=== PATIENT | male | born 1975 | race Caucasian/White ===

== ENCOUNTER 2019-11-11 12:58 | Emergency (ER) | payer OTHER, SELFPAY ==
[2019-11-11 13:11] VITALS: BP 167/112; PULSE 80; RESP 14; TEMP 36.7; O2SAT 98; BMI 30.7
--- NOTE | 2019-11-11 13:59 | CT_ITS ---
WS: [id number] CT head wo con* 95306 REASON FOR EXAM: syncope IV CONTRAST ADMINISTERED: None. TOTAL EXAM DLP: 885.[address] scans at [facility] use at least one of these dose optimization techniques: automat ed exposure control; mA and/or kV adjustment per patient size (includes targeted exams where dose is matched to clinical indication); or iterative reconstruction. FINDINGS: The cordova and white matter interfaces are normal. No evidence of hemorrhage, infarction, or mass effect. The ventricles are all normal size. No paraventricular lesions are seen. The eleonora and cerebellum and posterior fossa are normal. The calvarium was normal. No fractures are seen. The paranasal sinuses, orbits, and mastoid air cells are normal. CT/CT head wo con* 97211 IMPRESSION: Normal CT of the brain
--- NOTE | 2019-11-11 13:59 | XR_ITS ---
WS: [id number] XR chest 1V portable 40911 REASON FOR EXAM: syncope FINDINGS: Arteriosclerotic changes in the arch of the aorta are noted. Scattered interstitial changes both lung norman with mild chronic obstructive pulmonary disease. The heart is not enlarged. The hilum is and apices are normal.
--- NOTE | 2019-11-11 14:01 | ECG_ITS ---
Measurements Intervals [place] Rate: 67 P: 70 [place]: 154 QRS: 39 QRSD: 102 T: 55 QT: 409 QTc: 432 SINUS RHYTHM No previous ECG available for comparison Electronically Signed On 11-11-2019 19:38:27 CDT by Giorgio Boyce M.D. [email or web address]
[2019-11-11 15:19] LABS: Amphetamines Screen Urine Negative (Negative); Barbiturates Screen Urine Negative (Negative); Benzodiazepines Screen Urine Negative (Negative); Cocaine Screen Urine Negative (Negative); Opiate Screen Urine Negative (Negative); PCP Screen Urine Negative (Negative); THC Screen Urine Positive (Negative)
[2019-11-11 15:20] VITALS: BP 147/107; PULSE 75; RESP 16; O2SAT 97
--- NOTE | 2019-11-11 15:28 | XR_ITS ---
WS: [id number] XR chest 2V* 09596 REASON FOR EXAM: dizziness FINDINGS: The heart and mediastinal interfaces are normal. The lung norman are well aerated. No pneumonia, pleural effusion, pulmonary edema, no pneumothorax. The hilum and apices are normal. No osseous abnormalities. XR/XR chest 2V* 40564 IMPRESSION: No active chest for acute pathology
[2019-11-11 15:29] LABS: Add Urine Microscopic? YES; Bilirubin Urine Neg (NEGATIVE); Blood Urine 2+ (Negative); Glucose Urine UA Norm (Normal); Ketones Urine Negative (Negative); Leukocyte Esterase Urine Negative (Negative); Nitrate Urine Negative (Negative); Protein Urine Neg (Negative); Specific Gravity, Urine 1.015 (1.005-1.030); Urine Appearance Clear (CLEAR); Urine Color Yellow (Yellow); Urobilinogen Urine Norm (Negative); pH Urine 6 (5-7)
[2019-11-11 15:40] LABS: Add Urine Culture? No; Bacteria Urine TRACE; RBC Urine 0-4 /hpf (0-2)
[2019-11-11 15:49] LABS: Basophils # 0.1 10^3/uL (0.0-0.1); Basophils % 0.6 %; Eosinophils # 0.2 10^3/uL (0.0-0.8); Eosinophils % 1.9 %; Hematocrit 42.5 % (42.0-52.0); Hemoglobin 13.8 g/dL (11.7-16.6); Lymphocytes # 2.3 10^3/uL (0.8-4.8); Lymphocytes % 24.2 %; Mean Corpuscular HGB Conc 32.5 g/dL (30.0-36.0); Mean Corpuscular Hemoglobin 30.7 pg (28.0-34.0); Mean Corpuscular Volume 94.7 fL (80-94); Monocytes # 0.6 10^3/uL (0.2-0.9); Monocytes % 5.9 %; Neutrophils # 6.3 10^3/uL (1.8-7.7); Neutrophils % 66.9 %; Nucleated Red Blood Cells % 0 %; Platelet Count 284 10^3/cmm (130-400); Red Blood Count 4.49 10^6/uL (4.1-5.3); Red Cell Distribution Width 13.5 % (12.1-15.1); White Blood Count 9.4 10^3/uL (4.0-10.0)
--- NOTE | 2019-11-11 16:03 | ED_ITS ---
HPI - Syncope General: Chief Complaint: Syncope Stated Complaint: passing out Time Seen by Provider: 11/11/19 13:56 Source: patient Mode of arrival: ambulatory Limitations: no limitations History of Present Illness: HPI narrative: 44-year-old gentleman who presents to the emergency department with complains of syncopal episodes that have been going on since April, about 7 months. He denies chest pain or difficulty breathing. He has a prior history of lymphoma and has been in remission for several years. He has been trying to get into his primary care provider's office and finally got in today. His primary care was concerned and so sent him here for evaluation. MD complaint: loss of consciousness Onset (ago): month(s) Associated symptoms: Deny abdominal pain, chest pain, fever(s), headache(s) or nausea Review of Systems General: Reports: 10 or more systems reviewed and unremarkable except in HPI and below Const: Denies: fever(s), chills or body aches Eyes: Denies: change in vision or blurry vision ENMT: Denies: throat pain, enlarged tonsils, odynophagia, hoarseness, mouth pain or swelling of lips/tongue Card: Denies: chest pain, palpitations, irregular heart rhythm, edema or swelling of feet/ankles Resp: Denies: dyspnea, productive cough or non-productive cough GI: Denies: abdominal pain, nausea or vomiting : Denies: flank pain, dysuria, urinary frequency, urinary urgency or urinary hesitancy Musc: Denies: neck pain, back pain or extremity swelling Skin/Breast: Denies: rash, pruritus or erythema Neuro: Denies: headache(s), numbness in extremities or weakness in extremities Endo: Denies: polyuria, polydipsia or tired all the time PFS ED PFSH: Social History Smoking and tobacco status: never smoked Physical Exam Const: COMMON NORMALS: no acute distress, average body habitus, patient oriented x3, no limitations, healthy appearing, alert and well nourished HENMT: COMMON NORMALS: normocephalic, atraumatic and moist oral mucous membranes HEAD & SCALP: normocephalic and atraumatic Neck/C-Spine: COMMON NORMALS: full ROM, supple, no meningeal signs, no JVD and No carotid bruits Resp: COMMON NORMALS: normal respiratory effort, No retractions, No use of accessory muscles, clear to auscultation bilaterally and percussion normal AUSCULTATION: clear to auscultation bilaterally PERCUSSION: percussion normal Cardio: COMMON NORMALS: no JVD, regular rate, regular rhythm, S1 normal heart sound present, S2 normal heart sound present, No gallops present (Cardio), No clicks present (Cardio), No murmurs present (Cardio), No rub (Cardio) and Peripheral pulses 2+ throughout RATE: regular rate RHYTHM: regular rhythm HEART SOUNDS: S1 normal heart sound present and S2 normal heart sound present PERIPHERAL PULSES: Peripheral pulses 2+ throughout GI: COMMON NORMALS: Normal to inspection, nondistended, normoactive bowel sounds present, Soft to palpation, non-tender, No hepatosplenomegaly present, no masses and no bruits PALPATION: Yes Soft to palpation and Yes No hepa tosplenomegaly present : COMMON NORMALS: Yes no CVA tenderness BLADDER/KIDNEY EXAM: Yes no CVA tenderness Back/Pelvis: COMMON NORMALS: no CVA tenderness Extremity: COMMON NORMALS: normal to inspection, full ROM, capillary refill normal, no calf tenderness and no pedal edema Neuro: COMMON NORMALS: patient oriented x3 SENSORIUM/ORIENTATION: Yes alert MENINGEAL SIGNS: Yes no meningeal signs Skin: COMMON NORMALS: no rashes or lesions noted, no wounds, turgor normal, no jaundice, no petechiae and no mottling GENERAL SKIN EXAM: no rashes or lesions noted and turgor normal Course Reevaluation(s): Reevaluation #1: Patient informed the nurses that he would like to be discharged home. He states he does not want to stay in the hospital. I had a conversation with him, he informed me that all he came here for his to get his chest x-ray and lab work done. He states that his primary care provider will follow up with his lab results. He is not willing to wait for the lab results. 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 He therefore would like to leave. I explained to him that his symptoms may represent something serious and potentially life-threatening, he voiced understanding but still insisted on b eing discharged. He is willing to sign the AMA papers. Time: 16:03 Vital Signs: Vital signs: Vital Signs Temperature 98.0 F 11/11/19 13:11 Pulse Rate 75 11/11/19 15:20 Respiratory Rate 16 11/11/19 15:20 Blood Pressure 147/107 11/11/19 15:20 Pulse Oximetry 97 11/11/19 15:20 MDM - Syncope MDM Narrative: Medical decision making narrative: Patient who presents to the emergency department for evaluation of recurrent syncope. The patient was unwilling to wait for the results of his lab. He just wanted his labs to be drawn and his primary care provider will follow up with his results. The patient left AGAINST MEDICAL ADVICE. He understood the risks. Differential Diagnosis: Syncope differential diagnosis: Likely syncope due to orthostatic hypotension and vasovagal syncope Medical Records: Attestation: I reviewed the patient's medical records. Lab Data: Attestation: I reviewed the patient's lab results. Labs: Lab Results 11/11/19 11/11/19 11/11/19 Range/Units 14:10 14:54 14:54 WBC Cancelled Corrected WBC Cancelled RBC Cancelled Hgb Cancelled Hct Cancelled MCV Cancelled MCH Cancelled MCHC Cancelled RDW Cancelled Plt Count Cancelled MPV Cancelled Gran % Cancelled Neut % (Auto) Cancelled Lymph % (Auto) Cancelled [place] % (Auto) Cancelled Eos % (Auto) Cancelled Baso % (Auto) Cancelled Neut # (Auto) Cancelled Lymph # (Auto) Cancelled [place] # (Auto) Cancelled Eos # (Auto) Cancelled Baso # (Auto) Cancelled Absolute Gran (aut o) Cancelled Nucleated RBC % (a uto) Cancelled Nucleated RBCs # Cancelled Sodium (136-145) mmol/L Potassium (3.5-5.1) mmol/L Chloride (98-107) mmol/L Carbon Dioxide (22-29) mmol/L Anion Gap (5-19) BUN (6-20) mg/dL Creatinine (0.7-1.2) mg/dL GFR Calculation (90-130) mL/min Glucose (65-115) mg/dL Calculated Osmolal ity (285-295) mOsm/k g Lactate (0.5-2.2) mmol/L Calcium (8.5-10.5) mg/dL Total Bilirubin (0.15-1.2) mg/dL AST (0-40) U/L ALT (0-41) U/L Alkaline Phosphata se (40-130) IU/L C-Reactive Protein (0.0-4.9) mg/L Total Protein (6.6-8.7) g/dL Albumin (3.5-5.2) g/dL Globulin (1.3-4.6) g/dL Lipase (13-60) U/L Urine Color Yellow (Yellow) Urine Appearance Clear (CLEAR) Urine pH 6 (5-7) Ur Specific Gravit y 1.015 (1.005-1.030) Urine Protein Neg (Negative) Urine Glucose (UA) Norm (Normal) Urine Ketones Negative (Negative) Urine Blood 2+ H (Negative) Urine Nitrate Negative (Negative) Urine Bilirubin Neg (NEGATIVE) Urine Urobilinogen Norm (Negative) mg/dL Ur Leukocyte Hui ase Negative (Negative) Urine RBC 0-4 H (0-2) /hpf Urine WBC None (0-5) /hpf Ur Squamous Epith Cells None (0-5) Urine Bacteria Trace (NONE) Urine Opiates Scre en Negative (Negative) ng/mL Ur Barbiturates Sc reen Negative (Negative) ng/mL Ur Phencyclidine S crn Negative (Negative) ng/mL Ur Amphetamines Sc reen Negative (Negative) ng/mL U Benzodiazepines Scrn Negative (Negative) ng/mL Urine Cocaine Scre en Negative (Negative) ng/mL U Marijuana (THC) Screen Positive H (Negative) ng/mL 11/11/19 11/11/19 11/11/19 Range/Units 15:40 15:40 15:40 WBC 9.4 Corrected WBC RBC 4.49 Hgb 13.8 Hct 42.5 MCV 94.7 H MCH 30.7 MCHC 32.5 RDW 13.5 Plt Count 284 MPV 11.0 H Gran % Neut % (Auto) 66.9 Lymph % (Auto) 24.2 [place] % (Auto) 5.9 Eos % (Auto) 1.9 Baso % (Auto) 0.6 Neut # (Auto) 6.3 Lymph # (Auto) 2.3 [place] # (Auto) 0.6 Eos # (Auto) 0.2 Baso # (Auto) 0.1 Absolute Gran (aut o) Nucleated RBC % (a uto) 0 Nucleated RBCs # 0.0 Sodium 140 (136-145) mmol/L Potassium 4.4 (3.5-5.1) mmol/L Chloride 102 (98-107) mmol/L Carbon Dioxide 26 (22-29) mmol/L Anion Gap 16.4 (5-19) BUN 5 L (6-20) mg/dL Creatinine 0.8 (0.7-1.2) mg/dL GFR Calculation 104.1 (90-130) mL/min Glucose 99 (65-115) mg/dL Calculated Osmolal ity 286 (285-295) mOsm/k g Lactate 0.8 (0.5-2.2) mmol/L Calcium 10.0 (8.5-10.5) mg/dL Total Bilirubin 0.4 (0.15-1.2) mg/dL AST 15 (0-40) U/L ALT 17 (0-41) U/L Alkaline Phosphata se 83 (40-130) IU/L C-Reactive Protein 8.2 H (0.0-4.9) mg/L Total Protein 7.4 (6.6-8.7) g/dL Albumin 4.4 (3.5-5.2) g/dL Globulin 3.0 (1.3-4.6) g/dL Lipase 22 (13-60) U/L Urine Color (Yellow) Urine Appearance (CLEAR) Urine pH (5-7) Ur Specific Gravit y (1.005-1.030) Urine Protein (Negative) Urine Glucose (UA) (Normal) Urine Ketones (Negative) Urine Blood (Negative) Urine Nitrate (Negative) Urine Bilirubin (NEGATIVE) Urine Urobilinogen (Negative) mg/dL Ur Leukocyte Hui ase (Negative) Urine RBC (0-2) /hpf Urine WBC (0-5) /hpf Ur Squamous Epith Cells (0-5) Urine Bacteria (NONE) Urine Opiates Scre en (Negative) ng/mL Ur Barbiturates Sc reen (Negative) ng/mL Ur Phencyclidine S crn (Negative) ng/mL Ur Amphetamines Sc reen (Negative) ng/mL U Benzodiazepines Scrn (Negative) ng/mL Urine Cocaine Scre en (Negative) ng/mL U Marijuana (THC) Screen (Negative) ng/mL Imaging Data^: CXR: Radiologist's impression: [address] [address] XRay Report Signed Patient: Buddy Hoffman #: [id number] : 1975Acct#:[id number] Age/Sex: 44 / MADM Date: 11/11/19 Loc: ERRoom/Bed: Attending Dr: Ordering Provider/Ordering MD: Nerissa Cueva MD, [facility] [place] Date of Service: 11/11/19 Procedure(s): XR chest 2V* 19722 Accession Number(s): [id number] Report Number: [id number] WS: [id number] XR chest 2V* 99678 REASON FOR EXAM: dizziness FINDINGS: The heart and mediastinal interfaces are normal. The lung norman are well aerated. No pneumonia, pleural effusion, pulmonary edema, no pneumothorax. The hilum and apices are normal. No osseous abnormalities. XR/XR chest 2V* 64600 IMPRESSION: No active chest for acute pathology Dictated By:Franck Mosquera DO Signed By:Franck Mosquera DOSigned Date/Time:11/11/191558 DD/ 155 CT Head: Radiologist's impression: [address] [address] [address] Scan Report Signed Patient: Buddy Hoffman #: [id number] : 1975Acct#:[id number] Age/Sex: 44 / MADM Date: 11/11/19 Loc: ERRoom/Bed: Attending Dr: Ordering Provider/Ordering MD: Mirza Colunga DO Date of Service: 11/11/19 Procedure(s): CT head wo con* 22339 Accession Number(s): [id number] Report Number: [id number] WS: [id number] CT head wo con* 22966 REASON FOR EXAM: syncope IV CONTRAST ADMINISTERED: None. TOTAL EXAM DLP: 885.[address] scans at [facility] use at least one of these dose optimization techniques: automated exposure control; mA and/or kV adjustment per patient size (includes targeted exams where dose is matched to clinical indication); or iterative reconstruction. FINDINGS: The cordova and white matter interfaces are normal. No evidence of hemorrhage, infarction, or mass effect. The ventricles are all normal size. No paraventricular lesions are seen. The eleonora and cerebellum and posterior fossa are normal. The calvarium was normal. No fractures are seen. The paranasal sinuses, orbits, and mastoid air cells are normal. CT/CT head wo con* 85012 IMPRESSION: Normal CT of the brain Dictated By:Franck Mosquera DO Signed By:Franck Mosquera DOSigned Date/Time:11/11/19 1541 DD/ 1539 EKG Data^: EKG 1: Attestation: I personally reviewed and interpreted this EKG as follows: EKG interpretation date: 11/11/19 EKG interpretation time: 14:38 Prior EKG tracings: not available for review Interpretation: Normal sinus rhythm. Heart rate [address] changes. Normal axis. Discharge Plan Discharge Patient Disposition: Left Against Medical Advice Clinical Impression: History of lymphoma Syncope Qualifiers: Syncope type: unspecified Qualified Code(s): R55 - Syncope and collapse Condition: Stable Referrals: [facility] [Primary Care Provider] - 4-7 days Activity Restrictions/Additional Instructions: It is important for you to follow-up with your primary care provider for evaluation of your test results. Return for any new or worsening symptoms. Discharge Date/Time: 11/11/19 16:11 Coding Level of Care Code ED Weather Stripper for Mendoza Torres
[2019-11-11 16:04] LABS: Lactate (Lactic Acid level) 0.8 mmol/L (0.5-2.2)
[2019-11-11 16:05] LABS: Alanine Aminotransferase 17 U/L (0-41); Albumin Level 4.4 g/dL (3.5-5.2); Alkaline Phosphatase 83 IU/L (40-130); Aspartate Amino Transferase 15 U/L (0-40); Blood Urea Nitrogen 5 mg/dL (6-20); C Reactive Protein 8.2 mg/L (0.0-4.9); Carbon Dioxide 26 mmol/L (22-29); Glomerular Filtration Rate 104.1 mL/min (90-130); Glucose 99 mg/dL (65-115); Lipase 22 U/L (13-60); Total Bilirubin 0.4 mg/dL (0.15-1.2); Total Protein 7.4 g/dL (6.6-8.7)
[2019-11-11 17:09] LABS: Anion Gap 16.4 (5-19); Chloride 102 mmol/L (98-107); Osmolality Calculated 286 mOsm/kg (285-295); Potassium 4.4 mmol/L (3.5-5.1); Sodium 140 mmol/L (136-145)
[2019-11-12 15:40] LABS: Lyme AB Screen <0.90 index
[2019-11-14 17:15] LABS: RMSF IGG NOT DETECTED; RMSF IGM NOT DETECTED
[2019-11-14 22:01] LABS: E. Chaffeensis AB IGG <1:64; E. Chaffeensis AB IGM <1:20
== END 2019-11-11 16:11 | disposition left against medical advice (07) ==
PROVIDERS: Family Medicine; Emergency Provider Family Medicine
DX: R55 Syncope and collapse (principal); Z85.72 Personal history of non-Hodgkin lymphomas; Z53.21 Procedure and treatment not carried out due to patient leaving prior to being seen by health care provider
CPT/HCPCS: 12345; 36415; 70450; 71045; 71046; 80053; 80306; 81001; 83605; 83690; 85025; 86140; 93005; 99283; 99284

== ENCOUNTER → 2022-02-20 12:44 | Outpatient (BNVA) | payer OTHER, SELFPAY | PROVIDERS: Referring Provider Nurse Practitioner; Visit Provider Surgery | DX: K40.20 Bilateral inguinal hernia, without obstruction or gangrene, not specified as recurrent (principal) | CPT/HCPCS: 99203 ==

== ENCOUNTER → 2023-01-02 10:55 | Outpatient (BNVA) | payer OTHER, SELFPAY | PROVIDERS: Visit Provider Internal Medicine Cardiovascular Disease | DX: R55 Syncope and collapse (principal); I38 Endocarditis, valve unspecified; E89.0 Postprocedural hypothyroidism; Z85.79 Personal history of other malignant neoplasms of lymphoid, hematopoietic and related tissues; E78.5 Hyperlipidemia, unspecified; G40.909 Epilepsy, unspecified, not intractable, without status epilepticus; Z87.898 Personal history of other specified conditions | CPT/HCPCS: 99204 ==

== ENCOUNTER → 2023-01-02 10:55 | Outpatient (BNVA) | payer OTHER, SELFPAY | PROVIDERS: Visit Provider Internal Medicine Cardiovascular Disease | DX: R55 Syncope and collapse (principal); I38 Endocarditis, valve unspecified; E89.0 Postprocedural hypothyroidism; Z85.79 Personal history of other malignant neoplasms of lymphoid, hematopoietic and related tissues; Z87.898 Personal history of other specified conditions; Z86.69 Personal history of other diseases of the nervous system and sense organs | CPT/HCPCS: 99204 ==

== ENCOUNTER → 2023-01-02 11:30 | Outpatient (BNVA) | payer OTHER, SELFPAY | PROVIDERS: Visit Provider Internal Medicine Cardiovascular Disease | DX: R07.9 Chest pain, unspecified (principal) | CPT/HCPCS: 93005 ==

== ENCOUNTER 2023-01-12 09:27 | Outpatient (CLI) | payer OTHER, SELFPAY ==
--- NOTE | 2023-01-12 10:00 | USCV_ITS ---
Yasmin Peter Age: 47 Gender: M : 1975 Exam Date: 01/12/2023 09:56 Ordering Phys: Emperatriz Burkett MD ([email or web address]) Technologist: ANAID Exam Location: [facility] [place] Indication: SYNCOPE BP: 132 / 72 HR: 72 Rhythm: Sinus Technical Quality: Adequate MEASUREMENTS (Male / Female) Normal Values 2D ECHO LVOT Diameter 2.0 cm LV Ejection Fraction MOD 2C 62.3 % LV Ejection Fraction 2C AL 64.0 % LA Diameter 2.7 cm LA Width 3.4 cm LA Height 4.2 cm RA Width 3.5 cm RA Height 4.0 cm Aorta at Sinotubular Diameter 2.5 cm IVC Diameter 1.7 cm M-MODE Aortic Annulus Diameter 3.3 cm LA Ao Ratio MM 0.8 MV E Point Septal Separation 0.7 cm DOPPLER AV Peak Velocity 195.7 cm/s LVOT Peak Velocity 96.0 cm/s AV Area Cont Eq vti 1.8 cm squared AV Area Cont Eq pk 1.5 cm squared MV Peak Velocity 101.0 cm/s MV Area PHT 2.8 cm squared Mitral E to A Ratio 1.4 MV E' Velocity 57.5 cm/s Mitral E to MV E' Ratio 11.8 Mitral E to LV E' Lateral Ratio 11.9 Mitral E to LV E' Septal Ratio 11.8 TR Peak Velocity 157.2 cm/s TR Peak Gradient 9.9 mmHg TR Mean Velocity 114.5 cm/s TR Mean Gradient 5.6 mmHg TR Velocity Time Integral 40.6 cm TV Peak E Velocity 37.0 cm/s Right Atrial Pressure 3.0 mmHg Pulmonary Artery Systolic Pressu 12.9 mmHg PV Peak Velocity 109.0 cm/s RV Acceleration Time 0.1 s RV Ejection Time 0.3 s RV AcT/ET 0.2 FINDINGS Left Ventricle Normal left ventricular size and systolic function, EF 61 %. No regional wall motion abnormalities. Right Ventricle The right ventricle is normal in size and function. Right Atrium The right atrium is normal in size. Left Atrium Mildly increased left atrial size. Mitral Valve Mild mitral annular calcification. Mild mitral valve regurgitation. Aortic Valve No gross abnormalities noted. Tricuspid Valve No gross abnormalities noted Pulmonic Valve Pulmonic valve not well visualized. Pericardium Normal pericardium without effusion. Aorta Normal ascending aorta dimension. IVC The inferior vena cava appears normal. CONCLUSIONS Normal left ventricular size and systolic function, EF 61 %. No regional wall motion abnormalities. Mildly increased left atrial size. Mild mitral annular calcification. Mild mitral valve regurgitation. There is no pericardial effusion. The estimation of the pulmonary artery systolic pressure could be misleading because of the poor Doppler signals. No similar previous studies are available for comparison Dr Emperatriz Burkett MD [facility] (Electronically Signed) Final Date: 13 January 2023 10:29 S
== END 2023-01-12 09:28 | disposition home or self-care (01) ==
PROVIDERS: Visit Provider Internal Medicine Cardiovascular Disease
DX: I34.0 Nonrheumatic mitral (valve) insufficiency (principal); R06.09 Other forms of dyspnea
CPT/HCPCS: 93306; 99204